=== PATIENT | female | born 1980 | race American Indian/Alaskan Native ===

== ENCOUNTER 2019-09-02 09:14 | Emergency (ER) | payer MEDICAID ==
[2019-09-02 09:33] VITALS: BP 101/66
--- NOTE | 2019-09-02 12:20 | Emergency Department Report ---
Chief Complaint: Nausea/Vomiting/Diarrhea Stated Complaint: FLU Time Seen by Provider: 09/02/19 10:43 - HPI History of Present Illness: This is a 39-year-old -[place] female who presents to the emergency room with fever, chills, and myalgia for 2 days. Patient states she had a temperature of 103.0 last night. She reports vomiting twice or yesterday which have resolved since yesterday evening. Patient states she is tolerating fluids and eating as normal. She denies taking any medication for symptoms because she did not know what to take. She denies recent travel. She denies rhinorrhea, coryza, nausea, vomiting, diarrhea, weakness, chest pain, palpitations, shortness of breath, wheezing, or headache. - ROS Review of Systems: ROS: Stated complaint: Flulike symptoms Other details as noted in HPI Constitutional: chills, fever Respiratory: denies: cough, shortness of breath, wheezing Cardiovascular: denies: chest pain, palpitations Gastrointestinal: denies: abdominal pain, nausea, diarrhea Musculoskeletal: Myalgia. denies: joint swelling, arthralgia Skin: denies: rash, lesions Neurological: denies: headache, weakness, paresthesias Psychiatric: denies: anxiety, depression - Exam Vital Signs: Vital Signs 09/02/19 09:24 Temperature 99.1 F Pulse Rate 95 H Respiratory 16 Rate Blood Pressure 101/66 O2 Sat by Pulse 95 Oximetry Physical Exam: - Exam General: Vital signs noted. No distress. Alert and acting appropriately. HEENT: Yes Pharyngeal Erythema (Erythematous posterior pharynx, uvula midline), Yes Moist Mucous Membranes, Yes Rhinorrhea (Turbinates congested with clear discharge), No Pharyngeal Exudates, No Conjuctival Injection, No Frontal Tenderness, No Maxillary Tenderness Ear: Neither TM Bulge, Neither TM Erythema, Neither EAC Pain, Neither EAC Discharge Neck: Yes Supple, No Adenopathy Lungs: Yes Good Air Exchange, No Wheezes, No Ronchi, No Stridor, No Cough, No Labored Respirations, No Retractions, No Use of Accessory Muscles, No Other Abnormal Lung Sounds Heart: Yes Regular, No Murmur Abdomen: Yes Normal Bowel Sounds, No Tenderness, No Peritoneal Signs Skin: No Rash, No Edema Neurologic: Alert and oriented, no deficits. Musculoskeletal: Unremarkable. MSE screening note: Focused history and physical exam performed. Due to findings the following was ordered: ED Medical Decision Making - Medical Decision Making 39 y.o. female that presents with URI symptoms for 2 days. Patient examined by me and stable. No distress noted. Vitals stable. No active vomiting or diarrhea while in the ER. Patient is tolerating fluids well in the ER. Labs and imaging deferred at this time. This is suspected to be a upper respiratory infection. Patient will be started on NSAIDs and anti-emetics. Referral to primary care for continued care. Patient discharged home stable with strict return instructions. ED Disposition for MSE Clinical Impression: Nausea alone Upper respiratory infection Qualifiers: URI type: acute nasopharyngitis (common cold) Qualified Code(s): J00 - Acute nasopharyngitis [common cold] Disposition: TO HOME OR SELFCARE Is pt being admited?: No Condition: Stable Instructions: Cold Symptoms (ED), Upper Respiratory Infection (ED) Additional Instructions: Increase fluid intake and rest. Wash hands frequently. Continue taking Tylenol or ibuprofen to control fever. F/U with Primary Care Provider. Return to ER if fever, SOB, or difficulty breathing after 48 hours of supportive care. Prescriptions: Ibuprofen [Motrin 600 MG tab] 600 mg PO Q8H PRN #20 tablet PRN Reason: Pain Ondansetron [Zofran Odt] 4 mg PO Q8HR PRN #15 tab.rapdis PRN Reason: Nausea And Vomiting Referrals: [facility] [Outside] - 3-5 Days [facility] [Outside] - 3-5 Days [facility] [Outside] - 3-5 Days Forms: Work/School Release Form(ED) Time of Disposition: 12:21
== END 2019-09-02 12:12 | disposition home or self-care (01) ==
LOC: ED 09:14
DX: J06.9 Acute upper respiratory infection, unspecified (principal); R11.0 Nausea; M79.10 Myalgia, unspecified site
CPT/HCPCS: 99282